=== PATIENT | male | born 2000 | race Caucasian/White ===

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

== ENCOUNTER 2024-04-20 23:28 | Emergency (ER) | payer SELFPAY ==
[2024-04-21] MEDS ORDERED: IBUPROFEN 400 MG TAB ONE (00:12)
[2024-04-21] MEDS ORDERED: ACETAMINOPHEN 500 MG TAB ONE (00:12)
--- NOTE | 2024-04-21 01:07 | EDPHYS ---
Physician Documentation [facility] Name: Xiang Mckenna Age: 23 yrs Sex: Male : 2000 Arrival Date: 04/20/2024 Time: 23:28 Bed DX3 Private MD: ED Physician Dung Acevedo HPI: 04/21 01:15 This 23 yrs old Male presents to ER via Ambulatory with complaints of Foot dr5 Injury - Right, Dog Bite - back. 01:15 The patient presents with swelling, tenderness. The complaints affect the Right third dr5 toenail and Right fourth toenail. Context: The problem was sustained at home. Onset: The symptoms/episode began/occurred acutely. Patient is a 23-year-old gentleman with no past medical history coming into the ER today for hitting fourth right toe on a pole and being bit in the back by neighbors dog. Patient states they followed police report prior to arrival. Patient's tetanus is up-to-date.. Historical: - Allergies: 00:05 No Known Allergies; vc1 - Home Meds: 00:05 None [Active]; vc1 - PMHx: 00:05 Anxiety; Depression; vc1 - PSHx: 00:05 None; vc1 - Immunization history:: Adult Immunizations up to date, Last tetanus immunization: up to date. - Infectious Disease History:: Denies. - Social history:: Smoking status: Reported history of juuling and/or vaping. ROS: 01:15 Constitutional: as per hpi dr5 Exam: 01:15 Constitutional: This is a well developed, well nourished patient who is awake, alert, dr5 and in no acute distress. Head/Face: Normocephalic, atraumatic. Chest/axilla: Normal chest wall appearance and motion. Nontender with no deformity. No lesions are appreciated. Cardiovascular: Regular rate and rhythm with a normal S1 and S2. Normal PMI, no JVD. No pulse deficits. Respiratory: Lungs have equal breath sounds bilaterally, clear to auscultation. No rales, rhonchi or wheezes noted. No increased work of breathing, no retractions or nasal flaring. Abdomen/GI: Soft, non-tender, non-distended Back: No spinal tenderness. No costovertebral tenderness. Full range of motion. 01:15 Skin: Appearance: normal except for affected area, Abrasion noted to left lower back. No puncture wound appreciated., injury, contusion(s), Contusion / swelling noted to 3rd and 4th distal right toe. Cap refill < 2., 01:15 Neuro: Exam negative for acute changes, Orientation: is normal, appropriate for stated age, Mentation: Vital Signs: 00:03 BP 120 / 68; Pulse 76; Resp 14; Temp 98.6; Pulse Ox 100% ; Weight 58.97 kg; Height 5 vc1 ft. 6 in. ; Pain 8/10; 00:03 Body Mass Index 20.98 (58.97 kg, 167.64 cm) vc1 00:03 Pain Scale: Adult vc1 [place] Coma Score: 01:15 Eye Response: spontaneous(4). Motor Response: obeys commands(6). Verbal Response: dr5 oriented(5). Total: 15. MDM: 04/20 23:41 Medical Screening Exam initiated dr5 04/21 01:15 Differential diagnosis: dislocation, open fracture, contusion, abrasion. Data reviewed: dr5 vital signs, nurses notes. I considered the following discharge prescriptions or medication management in the emergency department Medications were administered in the Emergency Department. See MAR. Care significantly affected by the following chronic conditions: Anxiety. Care significantly affected by the following Social Determinants of Health: Poor access to healthcare and/or lack of insurance. Counseling: I had a detailed discussion with the patient and/or guardian regarding the historical points, exam findings, and any diagnostic results supporting the discharge/admit diagnosis, radiology results, the need for outpatient follow up, for definitive care, a family practitioner, a orthopedic surgeon, to return to the emergency department if symptoms worsen or persist or if there are any questions or concerns that arise at home. Medication response: ibuprofen administration has improved the patient's pain, Improved pain. Response to treatment: the patient's symptoms have markedly improved after treatment. ED course: No fracture appreciated on x-ray. Motrin/ Tylenol given in office. Augmentin given to cover dog bite. PCP follow up recommended. All questions answered.. 04/20 23:58 Order name: Foot Right 3 View XRAY dr5 Administered Medications: 00:21 Drug: Ibuprofen PO 800 mg PO once Route: PO; vc1 01:18 Follow up: Response: No adverse reaction; Marked relief of symptoms vc1 00:21 Drug: Acetaminophen PO 1000 mg PO once Route: PO; vc1 01:18 Follow up: Response: No adverse reaction; Marked relief of symptoms vc1 Disposition Summary: 04/21/24 01:06 Discharge Ordered Notes: Location: Home dr5 Condition: Stable dr5 Diagnosis - Bitten by dog dr5 Followup: dr5 - With: Emergency Department - When: As needed - Reason: Worsening of condition Followup: dr5 - With: Private Physician - When: 1 - 2 days - Reason: Recheck today's complaints, Continuance of care, Re-evaluation by your physician Discharge Instructions: - Discharge Summary Sheet dr5 - Animal Bite, Adult dr5 Forms: - Medication Reconciliation Form dr5 - Antibiotic Education dr5 - Patient Portal Instructions dr5 - Leadership Thank You Letter dr5 Prescriptions: - Augmentin 875-125 mg Oral Tablet - take 1 tablet ORAL route every 12 hours for 10 days; 20 tablet; Refills: 0, dr5 Product Selection Permitted Addendum: 04/22/2024 01:56 I was immediately available for consultation during this patient's visit. I did not e c2 personally see the patient or discuss the patient with the JOE. . Signatures: Dispatcher [employer] Maya Barnard RN RN vc1 Dung Acevedo MD MD ec2 Alonzo Rapp, SOFTWARE APPLICATIONS DESIGNER-C SOFTWARE APPLICATIONS DESIGNER-Cdr5
--- NOTE | 2024-04-21 01:07 | ER ---
Nurse's Notes [facility] Name: Xiang Mckenna Age: 23 yrs Sex: Male : 2000 Arrival Date: 04/20/2024 Time: 23:28 Bed DX3 Private MD: Diagnosis: Bitten by dog Presentation: 04/21 00:03 Chief complaint: Patient states: Attacked by my downstairs neighbors dogs. Coronavirus vc1 screen: Client denies travel out of the [place] in the last 14 days. At this time, the client does not indicate any symptoms associated with coronavirus-19. Ebola Screen: Patient negative for fever greater than or equal to 101.5 degrees Fahrenheit, and additional compatible Ebola Virus Disease symptoms Patient denies exposure to infectious person. Patient denies travel to an Ebola-affected area in the 21 days before illness onset. No symptoms or risks identified at this time. Initial Sepsis Screen: Does the patient meet any 2 criteria? No. Patient's initial sepsis screen is negative. Does the patient have a suspected source of infection? No. Patient's initial sepsis screen is negative. Risk Assessment: Do you want to hurt yourself or someone else? Patient reports no desire to harm self or others. Note PD notified per pt. Onset of symptoms was April 21, 2024. 00:03 Method Of Arrival: Ambulatory vc1 00:03 Acuity: VLAD 4 vc1 Triage Assessment: 00:00 General: Appears in no apparent distress. uncomfortable, Behavior is calm, cooperative, vc1 appropriate for age. Pain: Complains of pain in back. EENT: No deficits noted. No signs and/or symptoms were reported regarding the EENT system. Neuro: Level of Consciousness is awake, alert, obeys commands, Oriented to person, place, time, situation, Appropriate for age. Cardiovascular: Heart tones S1 S2 present Capillary refill < 3 seconds Patient's skin is warm and dry. Respiratory: Airway is patent Respiratory effort is even, unlabored, Respiratory pattern is regular, symmetrical, Breath sounds are clear bilaterally. GI: No deficits noted. No signs and/or symptoms were reported involving the gastrointestinal system. : No deficits noted. No signs and/or symptoms were reported regarding the genitourinary system. Derm: Skin is intact, is healthy with good turgor, Skin is dry, Skin is normal, Skin temperature is warm. Musculoskeletal: Circulation, motion, and sensation intact. Range of motion: intact in all extremities, Reports pain in back. Injury Description: Abrasion. Historical: - Allergies: 00:05 No Known Allergies; vc1 - Home Meds: 00:05 None [Active]; vc1 - PMHx: 00:05 Anxiety; Depression; vc1 - PSHx: 00:05 None; vc1 - Immunization history:: Adult Immunizations up to date, Last tetanus immunization: up to date. - Infectious Disease History:: Denies. - Social history:: Smoking status: Reported history of juuling and/or vaping. Screenin:06 [facility] ED Fall Risk Assessment (Adult) History of falling in the last 3 months, vc1 including since admission No falls in past 3 months (0 pts) Confusion or Disorientation No (0 pts) Intoxicated or Sedated No (0 pts) Impaired Gait No (0 pts) Mobility Assist Device Used No (0 pt) Altered Elimination No (0 pt) Score/Fall Risk Level 0 - 2 = Low Risk Oriented to surroundings, Maintained a safe environment, Educated pt \T\ family on fall prevention, incl call for assistance when getting out of bed. Abuse screen: Denies threats or abuse. Nutritional screening: No deficits noted. Tuberculosis screening: No symptoms or risk factors identified. Vital Signs: 00:03 BP 120 / 68; Pulse 76; Resp 14; Temp 98.6; Pulse Ox 100% ; Weight 58.97 kg; Height 5 vc1 ft. 6 in. ; Pain 8/10; 00:03 Body Mass Index 20.98 (58.97 kg, 167.64 cm) vc1 00:03 Pain Scale: Adult vc1 [place] Coma Score: 01:15 Eye Response: spontaneous(4). Motor Response: obeys commands(6). Verbal Response: dr5 oriented(5). Total: 15. ED Course: 04/20 23:35 Patient arrived in ED. ra3 23:41 Alonzo Rapp FNP-C [facility]. dr5 23:41 Dung Acevedo MD is Attending Physician. dr5 04/21 00:05 Triage completed. vc1 00:06 Arm band placed on right wrist. vc1 00:07 Patient has correct armband on for positive identification. seen in diagnostic chair. vc1 00:21 Foot Right 3 View XRAY In Process Unspecified. EDMS 01:10 Maya Cobos, RN is Primary Nurse. vc1 01:17 Provided Education on: wound care. vc1 01:17 No provider procedures requiring assistance completed. Patient did not have IV access vc1 during this emergency room visit. Administered Medications: 00:21 Drug: Ibuprofen PO 800 mg PO once Route: PO; vc1 01:18 Follow up: Response: No adverse reaction; Marked relief of symptoms vc1 00:21 Drug: Acetaminophen PO 1000 mg PO once Route: PO; vc1 01:18 Follow up: Response: No adverse reaction; Marked relief of symptoms vc1 Medication: 00:07 VIS not applicable for this client. vc1 Outcome: 01:06 Discharge ordered by . dr5 01:17 Discharged to home ambulatory, vc1 01:17 Condition: good 01:17 Discharge instructions given to patient, Instructed on discharge instructions, follow up and referral plans. medication usage, Demonstrated understanding of instructions, follow-up care, medications, Prescriptions given X 1, :18 Patient left the ED. vc1 Signatures: Dispatcher [employer] EDIL Maya Cobos, RN RN vc1 Angela Lemons ra3 Alonzo Rapp, ASSEMBLER BONDING-C ASSEMBLER BONDING-Cdr5
--- NOTE | 2024-04-21 05:04 | RAD REPORT ---
EXAMINATION: XR FOOT 3 OR MORE VIEWS RIGHT INDICATION: Male, 23 years old, Pain;Swelling TECHNIQUE: 3 views COMPARISON(S): None. FINDINGS: No acute fracture or dislocation. Normal osseous mineralization. No significant degenerative change. Punctate radiodensities project in the 1st webspace, with questionable swelling at the plantar aspect. IMPRESSION: Evidence of 1st webspace soft tissue swelling and punctate foreign bodies. No acute osseous finding o f the right foot. Electronically signed by: Apollo Jaime MD 04/21/2024 12:58 AM CDT Due to temporary technical issues with the PACS/Interfolio reporting system, reports are being hellen d by the in-house radiologist without review as a courtesy to ensure prompt reporting the interpreting radiologist is fully responsible for the content of the report. Transcribed Date/Time: 04/21/2024 5:04 AM
== END 2024-04-21 01:18 | disposition home or self-care (01) ==
LOC: ER 23:28
DX: S90.121A Contusion of right lesser toe(s) without damage to nail, initial encounter (principal); S30.810A Abrasion of lower back and pelvis, initial encounter; W54.0XXA Bitten by dog, initial encounter